=== PATIENT | male | born 1950 ===

== ENCOUNTER 2020-10-18 10:40 | Day surgery (SDC) | payer MEDICARE, OTHER ==
[~2020-10-18] VITALS: Ht 172.7 cm; Wt 112.8 kg
[2020-10-18] VITALS (13 sets, daily range): BP systolic 127–158; BP diastolic 72–109
[~2020-10-18 10:40] MED LIST: ESOM40CA49 PO; FLO0.4C PO; LISI40TA4 PO; ROSU40TA PO
[2020-10-18] MEDS ORDERED: nitroGLYCERIN 0.4mg SUBLingual tab SL PRN (11:05)
[2020-10-18] MEDS ORDERED: diphenhydrAMINE 25mg capsule PO PRN (11:05)
[2020-10-18] MEDS ORDERED: LORazepam 0.5 MG tablet PO PRN (11:05)
[2020-10-18] MEDS ORDERED: OMEP-50 PO (11:10)
[2020-10-18] MEDS ORDERED: ATEN25TA PO (11:10)
[2020-10-18] MEDS ORDERED: ATOR-2 PO (11:10)
[2020-10-18] MEDS ORDERED: NAPR-996 PO (11:10)
[2020-10-18] MEDS ORDERED: ASPI-1053 PO (11:11)
[2020-10-18] MEDS: normal saline 1,000 ML IV SCH ×2 (11:25→11:45)
[2020-10-18] MEDS ORDERED: midazolam 2 mg/2 ml injection ONE (11:50)
[2020-10-18] MEDS ORDERED: iohexol 350MG/ML 100ml bottle IV ONE (11:51)
[2020-10-18] MEDS ORDERED: fentaNYL/PF 50MCG/1 ML 2ML syringe ONE (11:51)
[2020-10-18] MEDS ORDERED: iohexol 350 MG/ML 50ML vial IV ONE (11:51)
[2020-10-18] MEDS ORDERED: LIDOcaine 1% (10mg/ml)w/preservative injection 20ml MDV ONE (11:51)
[2020-10-18] MEDS ORDERED: ondansetron/PF 4mg/2ml inj IV PRN (13:05)
[2020-10-18] MEDS ORDERED: HYDROcodone/acetaminophen 5mg/325mg tablet PO PRN (13:05)
[2020-10-18] MEDS ORDERED: OXAZEpam 15mg capsule PO PRN (13:05)
[2020-10-18] MEDS ORDERED: proCHLORperazine 10 MG/2 ml inj IV PRN (13:05)
[2020-10-18] MEDS ORDERED: HYDROcodone/acetaminophen 10/325mg tab PO PRN (13:05)
[2020-10-18] MEDS ORDERED: pneumococcal 23-VAL P-sac vacc 25 mcg/0.5ml vial IMVAC ONE (15:30)
[2020-10-18] MEDS ORDERED: FLU VACC QS2020-21(6MOS UP)/PF 60 MCG/0.5 ML SYRINGE IMVAC ONE (15:30)
== END 2020-10-18 18:50 | disposition home or self-care (01) ==
LOC: SSTAY O 10:40
PROVIDERS: ATTEND Internal Medicine Cardiovascular Disease
DX: R94.39 Abnormal result of other cardiovascular function study (principal); R06.09 Other forms of dyspnea; I25.10 Atherosclerotic heart disease of native coronary artery without angina pectoris; M19.90 Unspecified osteoarthritis, unspecified site; I12.9 Hypertensive chronic kidney disease with stage 1 through stage 4 chronic kidney disease, or unspecified chronic kidney disease; N18.9 Chronic kidney disease, unspecified; E78.5 Hyperlipidemia, unspecified; J44.9 Chronic obstructive pulmonary disease, unspecified; E66.01 Morbid (severe) obesity due to excess calories; Z68.37 Body mass index [BMI] 37.0-37.9, adult; Z79.899 Other long term (current) drug therapy; Z23 Encounter for immunization; Z79.82 Long term (current) use of aspirin; Z87.891 Personal history of nicotine dependence
CPT/HCPCS: 36415; 71046; 83880; 90732; 93005; 93458; 99152; 99153; C1760; C1769; G0008; G0009; J1644; J2001; J2250; J3010; J7030; Q0163; Q2039; Q9967; A4620